=== PATIENT | female | born 1965 | race Caucasian/White ===

== ENCOUNTER 2025-02-25 17:01 | Outpatient (CLI) | payer OTHER, SELFPAY ==
[2025-02-26 00:53] LABS: Chlamydia DNA Amplified* NOT DETECTED (No Detected); GC DNA Amplified* NOT DETECTED (No Detected)
[2025-02-28 12:50] LABS: HPV Source Cervix
[2025-03-01 15:26] LABS: Pap Test Digital Imaging Done
== END 2025-02-25 17:02 | disposition home or self-care (01) ==
PROVIDERS: Visit Provider Physician Assistant Medical
DX: Z00.00 Encounter for general adult medical examination without abnormal findings (principal)
CPT/HCPCS: 87491; 87591; 87624; 87625; 88141; 88142; 88175

== ENCOUNTER 2025-02-28 07:45 | Outpatient (CLI) | payer OTHER, SELFPAY | END 2025-02-28 07:46 | disposition home or self-care (01) | LOC: NFLDREF 03-05 20:58 | PROVIDERS: Visit Provider Physician Assistant Medical | DX: Z00.00 Encounter for general adult medical examination without abnormal findings (principal); Z78.0 Asymptomatic menopausal state; Z78.9 Other specified health status | CPT/HCPCS: 80053; 80061; 82306; 82607; 82728; 84443 ==